=== PATIENT | male | born 1965 | race Caucasian/White ===

== ENCOUNTER 2025-05-08 19:31 | Emergency (ER) | payer OTHER, SELFPAY ==
[2025-05-08 19:38] VITALS: BP 140/86
[2025-05-08 21:05] VITALS: BMI 25.3
[2025-05-08 21:06] VITALS: BP 125/78
[2025-05-08] MEDS: TYLENOL 1000 MG PO (21:46)
[2025-05-08] MEDS: ZOFRAN ODT (ORALLY DISINTEGRATING) 4 MG PO (21:46)
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
[2025-05-08 22:22] VITALS: BP 119/78
== END 2025-05-08 22:38 | disposition home or self-care (01) ==
LOC: EMR 19:31
PROVIDERS: EMERGENCY PHYSICIAN Emergency Medicine; FAMILY PHYSICIAN Internal Medicine
DX: S06.0XAA Concussion with loss of consciousness status unknown, initial encounter (principal); S01.01XA Laceration without foreign body of scalp, initial encounter; W22.8XXA Striking against or struck by other objects, initial encounter; E78.00 Pure hypercholesterolemia, unspecified; J45.909 Unspecified asthma, uncomplicated
CPT/HCPCS: 99284; 12001; 70450